=== PATIENT | male | born 1945 | race Two or more races ===

== ENCOUNTER 2021-10-03 08:08 | Outpatient (AMB) | payer MEDICARE, MEDICAID, SELFPAY ==
[2021-10-03 08:22] VITALS: BP 157/90; PULSE 50; RESP 18; TEMP 36.7; BMI 32.6
--- NOTE | 2021-10-03 08:22 | UROVISIT ---
Intake Vital Signs 10/03/21 08:22 Height 1.65 m Height Method Stated Weight 88.961 kg Weight Measurement Method Standing Scale BMI 32.6 Temp 98.0 F Temp Source Temporal Artery Scan Pulse 50 L Pulse Source Monitor Respiration 18 BP 157/90 H Blood Pressure Source Automatic Cuff Blood Pressure Location Left Upper Arm Position Sitting Intake Visit Reasons: Uro Cystocopy in office Allergy Allergies Opioids - Morphine Analogues Allergy (Verified 10/03/21 08:29) Home Meds Medication Reconciliation metoprolol tartrate 50 mg tablet 50 mg PO BID #0 tab 03/23/14 [History Confirmed 10/03/21] Multivitamins * (CENTRUM *) 1 tab PO QDAY #0 tab 03/22/17 [History Confirmed 10/03/21] TAMSULOSIN HCL 0.4 mg PO QDAY #90 03/22/17 [History Confirmed 10/03/21] finasteride 5 mg tablet (Proscar) 5 mg PO QDAY 06/22/21 [History Confirmed 10/03/21] Nurse Note: KWAKU Vincent- Patient to be placed on Dr. Javed's schedule. Current Vital Signs Height Height Method Weight Weight Measurement Method Body Mass Index Temperature Temperature Source 1.65 m Stated 88.961 kg Standing Scale 32.6 98.0 F Temporal Artery Scan 10/03/21 08:22 10/03/21 08:22 10/03/21 08:22 10/03/21 08:22 10/03/21 08:22 10/03/21 08:22 10/03/21 08:22 Pulse Rate Pulse Source Respiratory Rate Blood Pressure Blood Pressure Source Blood Pressure Location Blood Pressure Position 50 L Monitor 18 157/90 H Automatic Cuff Left Upper Arm Sitting 10/03/21 08:22 10/03/21 08:22 10/03/21 08:22 10/03/21 08:22 10/03/21 08:22 10/03/21 08:22 10/03/21 08:22 Office Procedures Uro Cystoscopy in office Office Procedure Informed consent given: Yes Consent signed: Yes Time out staff in room: Yes IMMEDIATELY PRIOR TO START OF PROCEDURE: ALL MEMBERS of the procedural team are in attendance and actively involved together in the TIME-OUT and verified as applies to the patient:: Correct Patient Identity, Correct Site, Consent Signed and Accurate, Team Agrees on Procedure, Patient has completed pre-procedure preparations, Antibiotic prophylaxis, Pre-procedure medications, Review of allergies and potential blood loss, Safety Precautions are in place based on patient history, Correct Patient Positioning, Procedural site marked by appropriate provider, Procedural site marking is visible after prep and draping, Relevant images and results are properly labeled and displayed, Reqd blood products, implants, devices and necessary equip available, Specimen container(s) and lab req(s) are available & labeled properly., H&P, assessments, and other pertinent documents are available and Antibiotics are administered, antibiotic irrigation fluids prepared. Time out verified: Yes Time out date: 10/03/21 Time out time: 09:20 Sterilizing agent: betadine Type of anesthesia: local Type of scope: flexible Tumor present: No Stone present: No Patient tolerated procedure: well Complications: No Visual taken: No Charges for this visit: My Supervising Practitioner for this visit is:: Celi Jimenez Cystoscopy: Yes Uro Level of Care Nursing/Assessment/Reassessment Patient Status: Established Patient Nursing Assessment/Reassessment: Update [facility] data in EMR, Vital Signs and Medication Reconciliation Coordination of Care: Comp Pt/[facility] Ed for care and Consent,records obtained Miscellaneous Interventions: Phys Asssit w/procedure Established Patient Point Assignment: 80 Procedure IM Injection: Yes Transrectal Ultrasound: No Office Meds lorazepam Performing Provider: Celi Jimenez MD Administered by: MALACHI Arias on 10/03/21 08:40 Dose Route Admin Location Lot Number Expiration Date [facility] Physical Therapy Nurse 1 mg PO gentamicin Performing Provider: Celi Jimenez MD Administered by: MALACHI Arias on 10/03/21 08:40 Dose Route Admin Location Lot Number Expiration Date [facility] Physical Therapy Nurse 120 mg IM right glut lidocaine HCl Performing Provider: Celi Jimenez MD Administered by: MALACHI Arias on 10/03/21 08:40 Dose Route Admin Location Lot Number Expiration Date [facility] Physical Therapy Nurse 1 applic topical hydrocodone-acetaminophen 5-325 mg Performing Provider: Celi Jimenez MD Documented (not given) by: MALACHI Arias on 10/03/21 08:28 Reason Not Given: Patient is Allergic Urology Clinic Office Visit Office Visit Date of visit:: October 03, 2021 08:08 Allergies & Home Medications: Allergies Opioids - Morphine Analogues Allergy (Verified 06/22/21 07:58) Visit: Reason for visit: [] Office Visit findings: [] Urology Cystoscopy Cystoscopy Procedure Date: October 03, 2021 08:08 Pre-procedure diagnosis:: 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 daily still symptomatic his IPSS score is 14 Deyanira score is 0 he was recommended cystoscopic examination rule out median lobe enlargement procedure and complications were discussed with patient in detail informed consent is obtained Procedure Description:: The patient received 120 mg Gentamicin IM pre-op prophylaxis. Informed consent was obtained for the procedure. The patient was prepped in a sterile manner. Local anesthetic was placed into the urethra. Cystoscopy was then performed. The urethra had no intrinsic lesions up to the prostatic fossa. There was [bilobar/ prostatic enlargement. Examination of the bladder revealed no evidence of cancerous lesions, papillary or polyp type lesions or stones. There was [mild/moderate] trabeculation Both ureters were putting out clear urine. The bladder was completely drained and the scope removed. The patient tolerated the procedure well. Post-op instructions were given. The patient is to call the office should any problems occur. Patient disposition he will be scheduled for either simple robotic prostatectomy aqua ablation
[2021-10-03 08:36] LABS: Bilirubin,Urine Clinitek Negative (Negative); Blood,Urine Clinitek Negative (Negative); Glucose, Urine Clinitek Negative (Negative); Ketones,Urine Clinitek Negative (Negative); Leukocyte Esterase,Urine Clin Trace (Negative); Nitrite,Urine Clinitek Negative (Negative); PH,Urine Clinitek 6.5 (5.0-7.0); Protein,Urine Clinitek Negative (Neg - Trace); Urobilinogen,Urine Clinitek 0.2 mg/dL (0.0-1.0)
== END 2021-10-03 10:22 | disposition home or self-care (01) ==
LOC: HODURO 08:08
PROVIDERS: PCP Nurse Practitioner Family; Visit Provider Urology

== ENCOUNTER 2021-10-04 12:58 | Outpatient (AMB) | payer MEDICARE, MEDICAID, SELFPAY ==
--- NOTE | 2021-10-04 13:05 | URONOTE_ITS ---
Intake Vital Signs 10/04/21 13:06 Height 1.65 m Weight 90.775 kg BMI 33.3 BP 138/79 H Blood Pressure Location Left Upper Arm Position Sitting Pulse 55 L Pulse Source Monitor Temp 98.3 F Temp Source Temporal Artery Scan Intake Visit Reasons: Uro Uroflow and Bladder Scan Preparation Supervisor Freezing Required: Yes Is patient in pain?: No Allergy Allergies Opioids - Morphine Analogues Allergy (Verified 10/04/21 13:06) Home Meds Medication Reconciliation finasteride 5 mg tablet (Proscar) 5 mg PO QDAY 06/22/21 [History Confirmed 10/04/21] metoprolol tartrate 50 mg tablet 50 mg PO QDAY #0 tab 10/04/21 [History Confirmed 10/04/21] tamsulosin 0.4 mg capsule 0.8 mg PO QHS cap 10/04/21 [History Confirmed 10/04/21] Office Procedures Uro Bladder Scan and Uro Flow My Supervising Practitioner for this visit is:: Celi Jimenez Bladder Scan and Uro Flow Completed?: Yes Diagnosis: BPH WITH LUTS N40.1 SLOW STREAM R39.12 Uro Level of Care Nursing/Assessment/Reassessment Patient Status: Established Patient Nursing Assessment/Reassessment: Update [facility] data in EMR, Vital Signs and Medication Reconciliation Coordination of Care: Comp Pt/Fam Ed for care Special Needs: Language special needs Established Patient Point Assignment: 55 Procedure IM Injection: No Transrectal Ultrasound: No
[2021-10-04 13:06] VITALS: BP 138/79; PULSE 55; TEMP 36.8; BMI 33.3
== END 2021-10-04 13:45 | disposition home or self-care (01) ==
LOC: HODURO 12:58
PROVIDERS: PCP Nurse Practitioner Family; Visit Provider Urology

== ENCOUNTER → 2025-03-22 | Outpatient (CLI) | payer MEDICARE, MEDICAID, SELFPAY ==
[2025-03-24 19:48] LABS: PSA, Free 0.50 ng/mL; PSA, Total 3.9 ng/mL (< OR = 4.0)
[2025-03-25 06:33] LABS: PSA, % Free 13 % (calc) (>25)
== END | disposition home or self-care (01) ==
LOC: COPL 08:42
PROVIDERS: PCP Physician Assistant; Referring Provider Urology; Visit Provider Urology
DX: N40.1 Benign prostatic hyperplasia with lower urinary tract symptoms (principal)
CPT/HCPCS: 36415; 84153; 84154

== ENCOUNTER → 2025-04-02 | Outpatient (BNVA) | payer MEDICARE, MEDICAID, SELFPAY | END | disposition home or self-care (01) | PROVIDERS: PCP Physician Assistant; Referring Provider Physician Assistant; Visit Provider Urology | DX: N40.1 Benign prostatic hyperplasia with lower urinary tract symptoms (principal); N13.8 Other obstructive and reflux uropathy; I10 Essential (primary) hypertension; E11.9 Type 2 diabetes mellitus without complications; E66.9 Obesity, unspecified; Z68.32 Body mass index [BMI] 32.0-32.9, adult | CPT/HCPCS: 81003; 99212; G0463 ==